=== PATIENT | female | born 1950 | race Caucasian/White ===

== ENCOUNTER 2019-10-07 08:21 | Emergency (ER) | payer OTHER ==
[~2019-10-07] VITALS: Ht 170.2 cm; Wt 59.0 kg
[~2019-10-07 08:21] MED LIST: NORFLEX100 MG PO; TORADOL10 MG PO
[2019-10-07] MEDS ORDERED: ACETAMINOPHEN500 M1 PO (09:14)
== END 2019-10-07 11:55 | disposition home or self-care (01) ==
LOC: ER 08:21
DX: B34.9 Viral infection, unspecified (principal); Z20.828 Contact with and (suspected) exposure to other viral communicable diseases

== ENCOUNTER → 2024-03-21 | Emergency (ER) | payer OTHER ==
[~2024-03-21] VITALS: Ht 165.1 cm; Wt 62.1 kg
[~2024-03-21] MED LIST changes: +ACETAMINOPHEN500 M1 PO
== END | disposition left against medical advice (07) ==
LOC: ER 05:24
DX: Z53.21 Procedure and treatment not carried out due to patient leaving prior to being seen by health care provider (principal)